=== PATIENT | male | born 1995 ===

== ENCOUNTER 2021-05-17 15:52 | Emergency (ER) | payer SELFPAY ==
[~2021-05-17] VITALS: Ht 177.8 cm; Wt 63.6 kg
[2021-05-17 16:04] VITALS: BP 110/60; PULSE 68; TEMP 98.2
== END 2021-05-17 17:20 | disposition home or self-care (01) ==
LOC: COL.ER 15:52
DX: S62.624A Displaced fracture of middle phalanx of right ring finger, initial encounter for closed fracture (principal); X50.1XXA Overexertion from prolonged static or awkward postures, initial encounter

== ENCOUNTER 2021-08-24 18:26 | Emergency (ER) | payer SELFPAY ==
[~2021-08-24] VITALS: Ht 175.3 cm; Wt 59.1 kg
[2021-08-24 18:42] VITALS: TEMP 98
[2021-08-24] MEDS ORDERED: OXY IR5 MG PO ×2 (19:12→19:15)
[2021-08-24 19:42] VITALS: BP 124/78; PULSE 76
== END 2021-08-24 19:42 | disposition home or self-care (01) ==
LOC: COL.ER 18:26
DX: S02.5XXA Fracture of tooth (traumatic), initial encounter for closed fracture (principal); X58.XXXA Exposure to other specified factors, initial encounter

== ENCOUNTER 2021-09-25 14:21 | Emergency (ER) | payer SELFPAY ==
[~2021-09-25] VITALS: Ht 175.3 cm; Wt 62.7 kg
[~2021-09-25 14:21] MED LIST: OXY IR5 MG PO
[2021-09-25 14:33] VITALS: TEMP 98.6
[2021-09-25] MEDS ORDERED: VOLTAREN 75 DR75 MG PO (15:13)
[2021-09-25 15:22] VITALS: BP 109/62; PULSE 69
== END 2021-09-25 15:23 | disposition home or self-care (01) ==
LOC: COL.ER 14:21
DX: M79.661 Pain in right lower leg (principal); G89.29 Other chronic pain; F17.200 Nicotine dependence, unspecified, uncomplicated

== ENCOUNTER 2021-10-01 19:36 | Emergency (ER) | payer SELFPAY ==
[~2021-10-01] VITALS: Ht 177.8 cm; Wt 62.7 kg
[~2021-10-01 19:36] MED LIST changes: +VOLTAREN 75 DR75 MG PO
[2021-10-01 19:39] VITALS: BP 129/80; PULSE 62; TEMP 98.3
[2021-10-01] MEDS ORDERED: AMOXICILLIN 8751 TAB PO (19:53)
== END 2021-10-01 20:05 | disposition home or self-care (01) ==
LOC: COL.ER 19:36
DX: S02.5XXA Fracture of tooth (traumatic), initial encounter for closed fracture (principal); K04.7 Periapical abscess without sinus; K02.9 Dental caries, unspecified; F17.210 Nicotine dependence, cigarettes, uncomplicated; X58.XXXA Exposure to other specified factors, initial encounter